=== PATIENT | female | born 1945 | race African-American/Black ===

== ENCOUNTER 2023-06-06 11:24 | Emergency (ER) | payer MEDICARE, OTHER, SELFPAY ==
--- NOTE | 2023-06-06 11:28 | ED.URI ---
HPI - URI/Sore Throat General Chief Complaint: Upper Respiratory Infection Stated Complaint: cold,runny nose,cough Time Seen by Provider: 06/06/23 11:26 Source: patient Mode of arrival: ambulatory Limitations: no limitations History of Present Illness HPI Narrative: Ms. Barrientos is a 77-year-old female patient presenting to the clinic today with complaints of runny nose, cough, nasal congestion, fever, chills, body aches, and urinary frequency x2 days. She reports she was in for approximately 14 days ago and thinks that she may have gotten sick from [place]. Highest fever is 103 in the clinic today. Patient had taken Tylenol for fever this morning. Patient states that she only has 1 lung Related Data Home Medications Medication Instructions Recorded Confirmed amlodipine 10 mg tablet 10 mg PO DAILY 06/06/23 06/06/23 gabapentin 100 mg capsule 100 mg PO DAILY 06/06/23 06/06/23 hydrochlorothiazide 25 mg tablet 25 mg PO DAILY 06/06/23 06/06/23 losartan 100 mg tablet 100 mg PO DAILY 06/06/23 06/06/23 potassium chloride 20 mEq 20 meq PO DAILY 06/06/23 06/06/23 tablet,extended release(part/cryst) (Klor-Con M) Allergies Allergy/AdvReac Type Severity Reaction Status Date / Time codeine Allergy Unknown Other Verified 06/06/23 11:34 morphine Allergy Unknown Other Verified 06/06/23 11:34 Review of Systems Review of Systems: Pertinent positives per HPI. Patient denies any rash, headache, visual changes, dizziness, sore throat, shortness of breath, chest pain, palpitations, nausea, vomiting, diarrhea, constipation, abdominal pain, or any urinary issues. PMFSH Comments At the time of my signature, I reviewed and agree with the nursing past medical, surgical, social, and family history. There is no relevant family history pertinent to the patient complaint. Exam Narrative: General: Well-developed, well nourished, in no apparent distress Head: Normocephalic, atraumatic Eyes: Pupils equally round and reactive to light bilaterally, EOM intact, sclera and conjunctive clear, no discharge, lids normal Ears: TMs intact and congested, ear canals clear, no drainage, grossly hearing normal. Nose: Nares patent, clear nasal discharge, no inflammation, no sinus tenderness. Mouth: Oropharynx without lesions or masses, good dentition, MMM. Postnasal drip Neck: Supple, trachea midline, no enlargement of anterior or posterior cervical nodes, no thyroid masses or goiter palpable. Cardio: Regular rate and rhythm, s1 and s2 normal, no murmur appreciated. Resp: Clear to auscultation bilaterally anteriorly and posteriorly over the right lung, no rhonchi, rales, wheezing or rubs Abdomen: Soft, pliable, nondistended, nontender to palpation, bowel sounds present all 4 quadrants, no CVAT tenderness, no organomegaly Course Course Emergency Course: Portions of this record may have been created with voice recognition software. Level of Care: Express Care Visit Vital Signs Vital signs: Vital signs reviewed MDM - URI/Sore Throat MDM Narrative Medical decision making narrative: At the time of visit patient is resting comfortably on the exam table. COVID testing was positive in the clinic today. States flu test was negative. Urinalysis shows trace of ketones, blood, and protein. Will send in prescription over for ciprofloxacin as well as Paxlovid. Supportive measures were discussed with the patient she voiced understanding discharge instructions agrees to treatment plan. Differential Diagnosis Differential diagnosis: Likely upper respiratory infection, otitis media, sinusitis, viral infection, bronchitis, influenza, pharyngitis and other (COVID) Discharge Plan Discharge Clinical Impression: COVID-19 Urinary tract infection Qualifiers: Urinary tract infection type: acute cystitis Hematuria presence: with hematuria Qualified Code(s): N30.01 - Acute cystitis with hematuria Patient Disposition: Home, Self-Care Condition:
[2023-06-06 11:35] VITALS: BP 102/72; PULSE 110; RESP 18; TEMP 39.6; O2SAT 98
[2023-06-06 12:01] VITALS: TEMP 39.6
[2023-06-06] MEDS: IBUPROFEN 400 MG TABLET 800 MG PO (12:01)
[2023-06-06 12:23] VITALS: PULSE 99; RESP 18; TEMP 38.6; O2SAT 98
== END 2023-06-06 12:23 | disposition home or self-care (01) ==
PROVIDERS: Emergency Provider Nurse Practitioner Family
DX: U07.1 COVID-19 (principal); N30.01 Acute cystitis with hematuria; I10 Essential (primary) hypertension; M19.90 Unspecified osteoarthritis, unspecified site; G25.81 Restless legs syndrome
CPT/HCPCS: 81003; 87086; 87088; 87426; 87804; 99213; A9270; C9803; G0463